=== PATIENT | male | born 1985 | race Two or more races ===

== ENCOUNTER 2016-10-03 19:33 | Emergency (ER) | payer MEDICAID ==
[~2016-10-03] VITALS: Ht 165.1 cm; Wt 68.0 kg
[~2016-10-03 19:33] MED LIST: DOCU100T2 PO; HYDR-3326 PO
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
[2016-10-03] MEDS ORDERED: CEPHALEXIN MONOHYDRATE 500 MG CAPSULE PO ONE (20:00)
[2016-10-03] MEDS ORDERED: OXYCODONE/APAP 5-325 MG TABLET PO ONE (20:00)
[2016-10-03] MEDS ORDERED: CEPHALEXIN MONOHYDRATE 500 MG CAPSULE ONE (20:10)
[2016-10-03] MEDS ORDERED: OXYCODONE/APAP 5-325 MG TABLET ONE (20:11)
--- NOTE | 2016-10-03 20:15 | NUR ---
PT TAKEN TO CT VIA WHEELCHAIR...FAMILY AT SIDE...
--- NOTE | 2016-10-03 21:24 | NUR ---
contact ct dept due to head CT not yet read... spoke with jt states he will contact lakshmi...
[2016-10-03 22:13] LABS: BASOPHILS % (AUTO) 0.4 % (0.0-2.0); EOSINOPHILS # (AUTO) 0.3 K/uL (0.0-0.7); EOSINOPHILS % (AUTO) 2.8 % (0.0-7.0); HEMATOCRIT 45.2 % (40-50); LYMPHOCYTES # (AUTO) 3.5 K/UL (0.8-4.8); LYMPHOCYTES % (AUTO) 31.8 % (20.5-51.5); MEAN CORPUSCULAR HEMOGLOBIN 26.8 UUG (27.0-31.0); MEAN CORPUSCULAR HGB CONC 33 g/dL (32.0-37.0); MEAN CORPUSCULAR VOLUME 80.8 FL (82.0-92.0); MONOCYTES # (AUTO) 0.7 K/UL (0.1-1.30); MONOCYTES % (AUTO) 6.1 % (0.0-11.0); NEUTROPHILS # (AUTO) 6.4 K/UL (1.8-8.9); NEUTROPHILS % (AUTO) 58.9 % (38.5-71.5); PLATELET COUNT (AUTO) 265 K/UL (150-450); RED BLOOD CELL COUNT(AUTO) 5.59 MIL/UL (4.7-6.1); WHITE BLOOD COUNT (AUTO) 10.9 K/UL (4.0-11.2)
--- NOTE | 2016-10-03 22:32 | NUR ---
Patient discharged to home in stable conditon. Written and verbal after care instructions given. Patient verbalizes understanding of instructions. Pt walked out of ER unassisted with belongings at side...
[2016-10-03 22:36] VITALS: BP 125/84
== END 2016-10-03 22:37 | disposition home or self-care (01) ==
LOC: ER 19:33
DX: S01.03XA Puncture wound without foreign body of scalp, initial encounter (principal); S00.83XA Contusion of other part of head, initial encounter; F17.200 Nicotine dependence, unspecified, uncomplicated; V89.9XXA Person injured in unspecified vehicle accident, initial encounter; Y93.55 Activity, bike riding; Y92.9 Unspecified place or not applicable; Y99.9 Unspecified external cause status
CPT/HCPCS: 36415; 70450; 85025; 85610; A4663

== ENCOUNTER 2016-12-17 15:03 | Emergency (ER) | payer SELFPAY ==
[~2016-12-17] VITALS: Ht 165.1 cm; Wt 65.8 kg
[2016-12-17] MEDS ORDERED: IV NORMAL SALINE 1000 ML BAG IV ONE (15:45)
[2016-12-17] MEDS ORDERED: ASPIRIN 325 MG TABLET PO ONE (15:45)
--- NOTE | 2016-12-17 15:51 | NUR ---
PT IS IN ROOM #1A. DR CHERRY EVALUATED THE PT.
[2016-12-17 15:57] LABS: BASOPHILS % (AUTO) 0.4 % (0.0-2.0); EOSINOPHILS # (AUTO) 0.3 K/uL (0.0-0.7); HEMATOCRIT 45.7 % (40-50); HEMOGLOBIN 15.1 G/DL (14.0-18.0); LYMPHOCYTES # (AUTO) 3.5 K/UL (0.8-4.8); LYMPHOCYTES % (AUTO) 31.2 % (20.5-51.5); MEAN CORPUSCULAR HEMOGLOBIN 27.1 UUG (27.0-31.0); MEAN CORPUSCULAR HGB CONC 33 g/dL (32.0-37.0); MEAN CORPUSCULAR VOLUME 81.9 FL (82.0-92.0); MONOCYTES # (AUTO) 0.9 K/UL (0.1-1.30); MONOCYTES % (AUTO) 8.5 % (0.0-11.0); NEUTROPHILS # (AUTO) 6.4 K/UL (1.8-8.9); NEUTROPHILS % (AUTO) 56.9 % (38.5-71.5); PLATELET COUNT (AUTO) 301 K/UL (150-450); RED BLOOD CELL COUNT(AUTO) 5.58 MIL/UL (4.7-6.1); WHITE BLOOD COUNT (AUTO) 11.1 K/UL (4.0-11.2)
[2016-12-17 16:00] LABS: CREATININE 0.9 mg/dL (0.6-1.3); POTASSIUM 3.7 mmol/L (3.5-5.1)
[2016-12-17 16:07] LABS: BILIRUBIN,DIRECT 0.1 mg/dL (0.0-0.2); BILIRUBIN,TOTAL 0.7 mg/dL (0.2-1.0); TOTAL PROTEIN, SERUM 7.8 g/dL (6.4-8.2)
[2016-12-17] MEDS ORDERED: ASPIRIN 325 MG TABLET ONE (16:13)
--- NOTE | 2016-12-17 19:14 | NUR ---
PT ELOPED AT 1830. DR CHERRY NOTIFIED.
== END 2016-12-17 19:18 | disposition left against medical advice (07) ==
LOC: ER 15:04
DX: R07.9 Chest pain, unspecified (principal); F15.10 Other stimulant abuse, uncomplicated; F17.200 Nicotine dependence, unspecified, uncomplicated
CPT/HCPCS: 36415; 70030-TC; 71010; 85025; 93005; A4663; J7030

== ENCOUNTER 2017-06-26 02:21 | Emergency (ER) | payer OTHER ==
[~2017-06-26] VITALS: Ht 165.1 cm; Wt 68.0 kg
--- NOTE | 2017-06-26 02:55 | NUR ---
Patient ambulated to ER with steady gait, c/o abdominal pain, denies nausea and vomiting, reports started around 9pm, pain is on the upper middle quadrant of the abdomen radiating to the chest.
--- NOTE | 2017-06-26 03:00 | NUR ---
Dr. Pearl at bedside for MSE.
[2017-06-26] MEDS ORDERED: LIDOCAINE VISCUS 2% 15 ML UDC PO STA (03:07)
[2017-06-26] MEDS ORDERED: PANTOPRAZOLE SODIUM 40 MG TABLET.DR PO ONE ×2 (03:15→03:23)
[2017-06-26] MEDS ORDERED: MAG HYDROX/AL HYDROX/SIMETH 30 ML LIQUID UDC PO ONE (03:15)
[2017-06-26] MEDS ORDERED: DICYCLOMINE HCL 10 MG/5 ML UDC LIQ PO ONE (03:15)
[2017-06-26] MEDS ORDERED: KETOROLAC TROMETHAMINE 15 MG INJ IV ONE (03:15)
[2017-06-26] MEDS ORDERED: IV NORMAL SALINE 1000 ML BAG IV ONE (03:15)
[2017-06-26] MEDS ORDERED: KETOROLAC TROMETHAMINE 15 MG INJ ONE (03:23)
[2017-06-26] MEDS ORDERED: LIDOCAINE VISCUS 2% 15 ML UDC ONE (03:32)
[2017-06-26] MEDS ORDERED: MAGNESIUM HYDROXIDE 30 ML LIQUID UDC ONE (03:33)
[2017-06-26] MEDS ORDERED: DICYCLOMINE HCL 10 MG/5 ML UDC LIQ ONE (03:34)
--- NOTE | 2017-06-26 04:05 | NUR ---
Patient in bed, sleeping, reports pain is about the same 7/10, now has pain on right middle quadrant.
[2017-06-26 04:14] LABS: *BILIRUBIN,URIN NEGATIVE (NEGATIVE); *BLOOD, URINE NEGATIVE (NEGATIVE); *CLARITY,URINE CLEAR (CLEAR); *COLOR,URINE YELLOW (YELLOW); *KETONES,URINE NEGATIVE (NEGATIVE); *PROTEIN,URINE NEGATIVE (NEGATIVE); *UROBILINOGEN,URINE 0.2 E.U./dl (NORMAL); LEUKOCYTE ESTERASE ,URINE NEGATIVE (NEGATIVE); NITRITE, URINE NEGATIVE (NEGATIVE); UGLUCOSE NEGATIVE (NEGATIVE)
[2017-06-26 04:16] LABS: POTASSIUM 3.8 mmol/L (3.5-5.1)
[2017-06-26 04:20] LABS: BACTERIA,URINE NONE SEEN /HPF (NONE SEEN); MUCUS,URINE FEW /LPF (0-FEW); RBC,URINE NONE SEEN /HPF (0-3); SQUAMOUS EPITHELIAL CELL,UR FEW /HPF (NONE SEEN); WBC,URINE 0-3 /HPF (0-3)
[2017-06-26 04:22] LABS: BASOPHILS % (AUTO) 0.3 % (0.0-2.0); BILIRUBIN,DIRECT 0.1 mg/dL (0.0-0.2); BILIRUBIN,TOTAL 0.3 mg/dL (0.2-1.0); EOSINOPHILS # (AUTO) 0.5 K/uL (0.0-0.7); HEMATOCRIT 42.7 % (36.7-47.1); HEMOGLOBIN 14.7 g/dL (12.5-16.3); LYMPHOCYTES # (AUTO) 4.6 K/uL (20.0-40.0); LYMPHOCYTES % (AUTO) 37.3 % (20.5-51.5); MEAN CORPUSCULAR HEMOGLOBIN 27.4 uug (23.8-33.4); MEAN CORPUSCULAR HGB CONC 34 g/dL (32.5-36.3); MEAN CORPUSCULAR VOLUME 79.7 fL (73.0-96.2); MONOCYTES # (AUTO) 0.7 K/uL (2.0-10.0); MONOCYTES % (AUTO) 6.1 % (0.0-11.0); NEUTROPHILS # (AUTO) 6.4 K/uL (1.8-8.9); NEUTROPHILS % (AUTO) 52.3 % (38.5-71.5); PLATELET COUNT (AUTO) 245 K/uL (152-348); RED BLOOD CELL COUNT(AUTO) 5.35 MIL/uL (4.06-5.63); TOTAL PROTEIN, SERUM 7.9 g/dL (6.4-8.2); WHITE BLOOD COUNT (AUTO) 12.2 K/uL (3.6-10.2)
--- NOTE | 2017-06-26 04:51 | NUR ---
Patient discharged to home in stable conditon. Written and verbal after care instructions given. Patient verbalizes understanding of instructions. Patient ambulated out of ER with steady gait, no acute signs of distress, VSS, all belongings taken, IV site discontinued.
[2017-06-26 04:53] VITALS: BP 114/70
== END 2017-06-26 04:54 | disposition home or self-care (01) ==
LOC: ER 02:28
DX: K80.50 Calculus of bile duct without cholangitis or cholecystitis without obstruction (principal); G89.29 Other chronic pain; M54.5 Low back pain; F17.210 Nicotine dependence, cigarettes, uncomplicated; F11.10 Opioid abuse, uncomplicated
CPT/HCPCS: 36415; 83690; 85025; A4663; J1885; J7030

== ENCOUNTER 2017-11-29 22:15 | Emergency (ER) | payer OTHER ==
--- NOTE | 2017-11-29 22:44 | NUR ---
Patient left without being triaged or seen by ERMD
== END 2017-11-29 22:45 | disposition left against medical advice (07) ==
LOC: ER 22:17
DX: Z53.21 Procedure and treatment not carried out due to patient leaving prior to being seen by health care provider (principal)

== ENCOUNTER 2018-12-07 23:21 | Emergency (ER) | payer OTHER ==
[~2018-12-07] VITALS: Ht 165.1 cm; Wt 65.8 kg
--- NOTE | 2018-12-07 23:40 | NUR ---
DR. HARRIS AT BEDSIDE FOR MSE.
[2018-12-08 00:09] LABS: CREATININE 0.9 mg/dL (0.6-1.3); POTASSIUM 3.5 mmol/L (3.5-5.1)
[2018-12-08] MEDS: IBUPROFEN 600 MG TABLET PO ONE (00:11)
[2018-12-08] MEDS: HYDROCODONE/APAP 5-325MG TABLET PO ONE (00:11)
[2018-12-08 00:12] LABS: BASOPHILS % (AUTO) 0.5 % (0.0-2.0); EOSINOPHILS # (AUTO) 0.3 K/uL (0.0-0.7); HEMOGLOBIN 14.7 g/dL (12.5-16.3); LYMPHOCYTES # (AUTO) 3.7 K/uL (20.0-40.0); LYMPHOCYTES % (AUTO) 38.6 % (20.5-51.5); MEAN CORPUSCULAR HEMOGLOBIN 28.8 uug (23.8-33.4); MEAN CORPUSCULAR HGB CONC 34 g/dL (32.5-36.3); MEAN CORPUSCULAR VOLUME 84.2 fL (73.0-96.2); MONOCYTES # (AUTO) 0.8 K/uL (2.0-10.0); MONOCYTES % (AUTO) 8.6 % (0.0-11.0); NEUTROPHILS # (AUTO) 4.7 K/uL (1.8-8.9); NEUTROPHILS % (AUTO) 49.3 % (38.5-71.5); PLATELET COUNT (AUTO) 262 K/uL (152-348); RED BLOOD CELL COUNT(AUTO) 5.11 MIL/uL (4.06-5.63); WHITE BLOOD COUNT (AUTO) 9.5 K/uL (3.6-10.2)
[2018-12-08] MEDS ORDERED: HYDROCODONE/APAP 5-325MG TABLET ONE (00:13)
[2018-12-08] MEDS ORDERED: IBUPROFEN 600 MG TABLET ONE (00:13)
[2018-12-08 00:22] LABS: BILIRUBIN,DIRECT 0.1 mg/dL (0.0-0.2); BILIRUBIN,TOTAL 0.4 mg/dL (0.2-1.0); TOTAL PROTEIN, SERUM 7.5 g/dL (6.4-8.2)
--- NOTE | 2018-12-08 01:04 | NUR ---
Patient discharged to home in stable conditon. Written and verbal after care instructions given. Patient verbalizes understanding of instructions. PATIENT LEFT WITH STABLE GAIT.
[2018-12-08 01:05] VITALS: BP 128/76
== END 2018-12-08 01:06 | disposition home or self-care (01) ==
LOC: ER 23:23
DX: M94.0 Chondrocostal junction syndrome [Tietze] (principal); Z71.6 Tobacco abuse counseling; F17.210 Nicotine dependence, cigarettes, uncomplicated; F14.10 Cocaine abuse, uncomplicated; F12.10 Cannabis abuse, uncomplicated
CPT/HCPCS: 36415; 70030-TC; 71045; 85025; 93005; A4663

== ENCOUNTER 2021-12-17 21:08 | Emergency (ER) | payer MEDICAID, OTHER ==
[~2021-12-17] VITALS: Ht 165.1 cm; Wt 81.6 kg
--- NOTE | 2021-12-17 21:30 | NUR ---
Herlinda carmen in [facility] - 12/17/21 at 2316 by [id number] Patient was called to be triaged but was not present in the waiting room or outside of ER.
[2021-12-17] MEDS ORDERED: DOCU-141 PO (23:51)
[2021-12-17] MEDS ORDERED: HYDR-4209 PO (23:51)
[2021-12-17] MEDS ORDERED: HYDR25SU13 RC (23:51)
[2021-12-18] MEDS ORDERED: HYDROCODONE/APAP 5-325MG TABLET ONE (00:25)
[2021-12-18] MEDS ORDERED: ONDANSETRON HCL 4 MG TABLET ONE (00:25)
[2021-12-18] MEDS: HYDROCODONE/APAP 10-325 MG TABLET PO ONE (00:29)
[2021-12-18] MEDS: ONDANSETRON ODT 4 MG TAB.RAPDIS SL ONE (00:29)
[2021-12-18 00:30] VITALS: BP 135/78
== END 2021-12-18 00:32 | disposition home or self-care (01) ==
LOC: ER 21:11
DX: K64.4 Residual hemorrhoidal skin tags (principal); F17.210 Nicotine dependence, cigarettes, uncomplicated; Z83.3 Family history of diabetes mellitus; Z82.3 Family history of stroke; Z82.49 Family history of ischemic heart disease and other diseases of the circulatory system
CPT/HCPCS: Q0162